=== PATIENT | male | born 1955 | race Caucasian/White ===

== ENCOUNTER 2018-03-16 16:16 | Emergency (ER) | payer BC, SELFPAY | END 2018-03-16 22:33 | disposition short-term general hospital (02) | PROVIDERS: Emergency Provider Emergency Medicine; Family Provider Family Medicine; PCP Family Medicine; Visit Provider Emergency Medicine | DX: J96.00 Acute respiratory failure, unspecified whether with hypoxia or hypercapnia (principal); J84.10 Pulmonary fibrosis, unspecified | CPT/HCPCS: 36415; 36600; 71260; 71275; 80053; 82805; 83880; 84484; 85025; 85610; 85730; 93005; 93010; 96374; 96375; 99058; 99285; J1200; J2060; J2930; Q9967 ==